=== PATIENT | male | born 1980 | race Caucasian/White ===

== ENCOUNTER 2025-04-29 08:44 | Emergency (ER) | payer OTHER ==
[~2025-04-29] VITALS: Ht 193 cm; Wt 100.1 kg
[2025-04-29 09:27] VITALS: BP 148/77
== END 2025-04-29 09:27 | disposition home or self-care (01) ==
LOC: ED 08:44
DX: S21.239A Puncture wound without foreign body of unspecified back wall of thorax without penetration into thoracic cavity, initial encounter (principal); S80.212A Abrasion, left knee, initial encounter; W19.XXXA Unspecified fall, initial encounter
CPT/HCPCS: 73560; 99283